=== PATIENT | female | born 1930 | race Caucasian/White ===

== ENCOUNTER 2016-10-02 15:08 | Emergency (ER) | payer OTHER ==
[~2016-10-02] VITALS: Ht 160 cm; Wt 51.7 kg
[2016-10-02 15:45] VITALS: BP 154/54
[2016-10-02] MEDS ORDERED: ACETAMINOPHEN 500 MG TAB PO ONE (16:35)
[2016-10-02 16:43] LABS: CONDITION Y; Hematocrit 32.4 % (36.0-46.0); Mean Corpuscular Hemoglobin 30.7 pg (28.0-32.0); Mean Corpuscular Volume 90.2 fL (80.0-100.0); Mean Platelet Volume 9.7 fL (7.4-10.4); Platelet Count (auto) 87 10^3/uL (140-450); Red Cell Distribution Width 16.5 % (11.6-16.0); SUSPECT SEE PRINTOUT; White Blood Cell 4.3 10^3/uL (4.4-10.8)
[2016-10-02 16:52] LABS: INR 2.32 (0.9-1.15)
[2016-10-02 17:00] LABS: Metamyelocytes % 0; Myelocytes % 0; Promyelocytes % 0; Reactive Lymphocytes 0
[2016-10-02 17:07] LABS: Albumin 3.7 g/dL (3.4-5.0); Anion Gap 12 (5-15); Aspartate Aminotransferase 41 U/L (15-37); Blood Urea Nitrogen 60 mg/dL (7-18); Calcium 8.9 mg/dL (8.5-10.1); Carbon Dioxide 23 mmol/L (21-32); Chloride 109 mmol/L (98-107); GFR African American 45 mL/min; GFR Non-African American 37 mL/min; Glucose 107 mg/dL (74-106); Potassium 4.4 mmol/L (3.5-5.1); Sodium 144 mmol/L (136-145)
[2016-10-02 17:11] LABS: Prothrombin Time 25.5 sec (9.37-12.3)
[2016-10-02 17:12] LABS: Alkaline Phosphatase 184 U/L (45-117); Bilirubin, Total 0.9 mg/dL (0.2-1.0); Total Protein 8.1 g/dL (6.4-8.2)
[2016-10-02 18:14] LABS: Ovalocytes FEW; Platelet Estimate Adequate
== END 2016-10-02 17:54 | disposition home or self-care (01) ==
LOC: ER 15:22
DX: R04.0 Epistaxis (principal); I11.0 Hypertensive heart disease with heart failure; I50.9 Heart failure, unspecified; J44.9 Chronic obstructive pulmonary disease, unspecified; Z86.2 Personal history of diseases of the blood and blood-forming organs and certain disorders involving the immune mechanism; Z90.49 Acquired absence of other specified parts of digestive tract; Z79.01 Long term (current) use of anticoagulants
CPT/HCPCS: 30901; 36415; 80053; 84484; 85007; 85027; 85610